=== PATIENT | female | born 1995 | race Caucasian/White ===

== ENCOUNTER 2019-03-16 20:50 | Emergency (ER) | payer SELFPAY ==
[~2019-03-16] VITALS: Wt 54.5 kg
[2019-03-16 21:15] VITALS: BP 120/69; PULSE 75; RESP 20
[2019-03-16] MEDS ORDERED: ALPRAZOLAM 0.25 MG TAB PO ONE (21:30)
--- NOTE | 2019-03-16 23:29 | ERD ---
ER Documentation Chief Complaint Chief Complaint depression after separation with . anxiety , denies si or hi HPI Patient is a 23-year-old female with anxiety who presents with stress. The patient said that she is going through a divorce recently. She has had decreased intake by mouth and decreased sleep. She has somebody to stay with an denies physical abuse. The patient denies suicidal or homicidal ideation. She does not currently have a primary doctor. Upon review of old medical records this is the patient's first visit to the emergency department. ROS All systems reviewed and are negative except as per history of present illness. PMhx/Soc Medical and Surgical Hx: pt denies Medical Hx, pt denies Surgical Hx Hx Alcohol Use: No Hx Substance Use: No Hx Tobacco Use: No Smoking Status: Never smoker FmHx Family History: diabetes Physical Exam Vitals Vital Signs Date Temp Pulse Resp B/P (MAP) Pulse Ox O2 O2 Flow FiO2 Time Delivery Rate 03/16/19 98.4 75 20 120/69 98 Room Air 21:15 (86) 03/16/19 98.4 79 20 126/68 98 20:56 (87) Physical Exam Const: No acute distress Head: Atraumatic Eyes: Normal Conjunctiva ENT: Normal External Ears, Nose and Mouth. Neck: Full range of motion. No meningismus. Resp: Clear to auscultation bilaterally Cardio: Regular rate and rhythm, no murmurs Abd: Soft, non tender, non distended. Normal bowel sounds Skin: No petechiae or rashes Back: No midline or flank tenderness Ext: No cyanosis, or edema Neur: Awake and alert Psych: Depressed affect but no suicidal or homicidal ideation Results 24 hrs Current Medications Medications Dose Sig/Sandeep Start Time Status Last (Trade) Ordered Route PRN Stop Time Admin Dose Reason Admin Alprazolam 0.5 mg ONCE ONCE 03/16/19 DC 03/16/19 (Xanax) PO 21:30 21:15 03/16/19 21:31 Procedures/MDM Smoking Cessation Therapy: Pt. was lectured for greater than 3 minutes on the health risks of continued smoking and the benefits of cessation. Patient is a 23-year-old female with anxiety who presents for anxiety. The noel ent sound like she is having a panic attack from the recent stress of her divorce. I do not believe she requires inpatient admission or further work-up. She does not require 5150 hold. The patient will be discharged and will be provided with list of the local psychiatric resources. She can return for any worsening symptoms. Departure Diagnosis: Primary Impression: Panic attack Additional Impression: Depression Depression Type: unspecified Qualified Codes: F32.9 - Major depressive disorder, single episode, unspecified Condition: Fair Patient Instructions: Panic Attack Referrals: COMM[facility]ITY CLIN[facility] YOU HAVE RECEIVED A MEDICAL SCREENING EXAM AND THE RESULTS INDICATE THAT YOU DO NOT HAVE A CONDITION THAT REQUIRES URGENT TREATMENT IN THE EMERGENCY DEPARTMENT. FURTHER EVALUATION AND TREATMENT OF YOUR CONDITION CAN WAIT UNTIL YOU ARE SEEN IN YOUR DOCTORS OFFICE WITHIN THE NEXT 1-2 DAYS. IT IS YOUR RESPONSIBILITY TO MAKE AN APPOINTMENT FOR [facility]. IF YOU HAVE A PRIMARY DOCTOR --you should call your primary doctor and schedule an appointment IF YOU DO NOT HAVE A PRIMARY DOCTOR YOU CAN CALL OUR PHYSICIAN REFERRAL HOTLINE AT IF YOU CAN NOT AFFORD TO SEE A PHYSICIAN YOU CAN CHOSE FROM THE FOLLOWING [facility] [address] [facility] [address] [facility] [address] [facility] [address] [facility] [address] [facility] [facility] [address] Additional Instructions: Call your primary care doctor TOMORROW for an appointment during the next 1 WEEK.Tell the searchlight operator that you were referred from this facility.See the doctor sooner or return here if your condition worsens before your appointment time. MUSA DHALIWAL MD Mar 16, 2019 23:29
== END 2019-03-16 21:35 | disposition home or self-care (01) ==
LOC: E/R 20:50
DX: F41.0 Panic disorder [episodic paroxysmal anxiety] (principal); F32.9 Major depressive disorder, single episode, unspecified
CPT/HCPCS: 99283